=== PATIENT | female | born 1935 | race Caucasian/White ===

== ENCOUNTER 2020-05-22 13:41 | Inpatient (IN) ==
[2020-05-22] MEDS ORDERED: SODIUM CHLORIDE 0.9% 1,000 ML IV STA (14:02)
[2020-05-22] MEDS ORDERED: SODIUM CHLORIDE 0.9% 500 ML IV STA (14:07)
[2020-05-22 14:34] LABS: ABG Base Excess 3.5 MMOL/L (-2.5-2.5); ABG HCO3 27.4 MMOL/L (20-26); ABG PCO2 38.9 MM HG (35-48); ABG PH 7.465 (7.35-7.45); ABG PO2 101.1 MM HG (80-95); ABG TCO2 28.6 MMOL/L (23-27)
[2020-05-22 14:42] LABS: Basophils % 0.2 % (0.0-0.8); Eosinophils # 0.1 10*3/uL (0.0-0.87); Eosinophils % 0.5 % (0.00-10.9); Hematocrit 42.5 VOL% (35.7-47.0); Hemoglobin 13.3 GM/DL (12.0-16.0); Immature Granulocytes % 0.6 %; Immature Granulocytes Absolute 0.09 #; Lymphocytes # 3.3 10*3/uL (1.4-4.0); Lymphocytes % 21.8 % (21.3-54.2); Mean Corpuscular HGB Conc 31.3 GM/DL (32-36); Mean Corpuscular Volume 97.5 FL (87-102); Mean Platelet Volume 9.4 FL (9.6-12.0); Monocytes % 5.7 % (1.7-12.7); Neutrophils % 71.2 % (38.7-73.9); Platelet Count 170 T/CUMM (130-400); Red Blood Count 4.36 MC/CUMM (3.8-5.5); Red Cell Distribution Width 15.2 % (9.3-17.3)
[2020-05-22] MEDS ORDERED: AZITHROMYCIN INJ 500 MG in SODIUM CHLORIDE 0.9% 250 ML IV STA (14:54)
[2020-05-22] MEDS ORDERED: cefTRIAXone 1,000 MG in SODIUM CHLORIDE 0.9% 100 ML IV STA (14:54)
[2020-05-22 14:57] LABS: Apearance,Urine CLEAR (Clear); Bacteria,Urine Many /HPF (Few); Bilirubin,Urine Negative (Negative); Blood, Urine Small mg/dL (Negative); Glucose,Urine (UA) Negative (Negative); Hyaline Casts,Urine 4 /LPF (0-3); Ketones,Urine Negative (Negative); Mucus,Urine Occasional /LPF (Occasional); Nitrite,Urine Positive (Negative); Protein,Urine Negative; RBC,Urine 1 /HPF (0-4); Squamous Epithelial Cell,Urine Occasional /HPF (0-10); Urine Color Yellow (Yellow); Urine Specific Gravity 1.013 (1.001-1.035); Urine Urobilinogen < 2.0 EU/DL (0.2-1.0); WBC,Urine 17 /HPF (0-6)
[2020-05-22 15:08] LABS: Alanine Aminotransferase < 9 U/L (13-56); Albumin 2.2 G/DL (3.4-5.0); Alkaline Phosphatase 127 U/L (45-117); Aspartate Amino Transferase 24 U/L (0-37); Blood Urea Nitrogen 27 MG/DL (7-18); Calcium 7.4 MG/DL (8.5-10.1); Estimated Glom Filtration Rate 34 ML/MIN; Glucose 79 MG/DL (74-106); Osmolality,Calculated 299.1 MOS/KG (273-304); Total Protein 4.9 G/DL (6.4-8.3)
[2020-05-22 15:11] LABS: Ferritin 335.9 ng/ml (8-252)
[2020-05-22 15:44] LABS: Sedimentation Rate-Westergren 50 MM/HR (0-30)
[2020-05-22] MEDS ORDERED: ACETAMINOPHEN 325 MG TABLET PO PRN (16:00)
[2020-05-22] MEDS ORDERED: ONDANSETRON 4 MG/2 ML VIAL IV PRN (16:20)
[2020-05-22] MEDS ORDERED: SIMETHICONE CHEW 125 MG TABLET PO PRN (16:20)
[2020-05-22] MEDS ORDERED: DEXTROSE 50% 25 GM/50 ML VIAL IV PRN (16:20)
[2020-05-22] MEDS ORDERED: DOCUSATE SODIUM 100 MG CAPSULE PO PRN (16:20)
[2020-05-22] MEDS ORDERED: MORPHINE 4 MG/1 ML VIAL IV PRN (16:20)
[2020-05-22] MEDS ORDERED: guaiFENesin/DM ER 600-30 MG TABLET PO PRN (16:20)
[2020-05-22] MEDS ORDERED: hydrALAZINE 20 MG/1 ML VIAL IV PRN (16:20)
[2020-05-22] MEDS ORDERED: diphenhydrAMINE CAP 25 MG CAPSULE PO PRN (16:20)
[2020-05-22] MEDS ORDERED: LACTULOSE 20 GM/30 ML UDCUP PO PRN (16:20)
[2020-05-22] MEDS ORDERED: ZALEPLON 5 MG CAPSULE PO PRN (16:20)
[2020-05-22] MEDS ORDERED: BISACODYL 5 MG TABLET PO PRN (16:20)
[2020-05-22] MEDS ORDERED: traZODone 50 MG TABLET PO PRN (16:20)
[2020-05-22] MEDS ORDERED: GLUCAGON 1 MG VIAL IM PRN (16:20)
[2020-05-22] MEDS: FUROSEMIDE 40 MG TABLET PO SCH (17:39)
[2020-05-22] MEDS: SODIUM CHLORIDE 0.9% 1,000 ML IV SCH (18:02)
[2020-05-22] MEDS: ENOXAPARIN 40 MG/0.4 ML SYRINGE SUBCUT SCH (20:54)
[2020-05-22] MEDS: POTASSIUM CHLORIDE 20 MEQ TABLET PO SCH (20:55)
[2020-05-22] MEDS: METOPROLOL TARTRATE 50 MG TABLET PO SCH (20:55)
[2020-05-22] MEDS: GABAPENTIN 100 MG CAPSULE PO SCH (20:55)
[2020-05-22] MEDS: cilostazoL 100 MG TABLET PO SCH (20:55)
[2020-05-22] MEDS: MEMANTINE 10 MG TABLET PO SCH (20:56)
[2020-05-22] MEDS: CALCIUM (CARBONATE)/VITAMIN D 600 MG-400 UNIT TABLET PO SCH (20:56)
[2020-05-22] MEDS: DONEPEZIL 10 MG TABLET PO SCH (20:56)
[2020-05-23 05:58] LABS: Basophils % 0.2 % (0.0-0.8); Eosinophils # 0.2 10*3/uL (0.0-0.87); Eosinophils % 1.9 % (0.00-10.9); Hematocrit 34.6 VOL% (35.7-47.0); Immature Granulocytes % 0.7 %; Immature Granulocytes Absolute 0.08 #; Lymphocytes # 2.8 10*3/uL (1.4-4.0); Lymphocytes % 25.6 % (21.3-54.2); Mean Corpuscular HGB Conc 31.8 GM/DL (32-36); Mean Corpuscular Volume 97.2 FL (87-102); Mean Platelet Volume 9.3 FL (9.6-12.0); Monocytes % 6.7 % (1.7-12.7); Neutrophils % 64.9 % (38.7-73.9); Platelet Count 170 T/CUMM (130-400); Red Blood Count 3.56 MC/CUMM (3.8-5.5); Red Cell Distribution Width 14.9 % (9.3-17.3); White Blood Count 11.1 T/CUMM (4-12)
[2020-05-23 06:27] LABS: Risk Ratio 5.26; Thyroid Stimulating Hormone 2.02 uIU/ml (0.358-3.74)
[2020-05-23 07:00] LABS: Alanine Aminotransferase < 9 U/L (13-56); Albumin 2.2 G/DL (3.4-5.0); Alkaline Phosphatase 128 U/L (45-117); Aspartate Amino Transferase 23 U/L (0-37); Blood Urea Nitrogen 32 MG/DL (7-18); Calcium 8.8 MG/DL (8.5-10.1); Estimated Glom Filtration Rate 34 ML/MIN; Ferritin 438.1 ng/ml (8-252); Glucose 85 MG/DL (74-106); Osmolality,Calculated 295.6 MOS/KG (273-304); Total Protein 5.8 G/DL (6.4-8.3)
[2020-05-23 07:09] LABS: Sedimentation Rate-Westergren 64 MM/HR (0-30)
[2020-05-23] MEDS ORDERED: PANTOPRAZOLE 40 MG TABLET PO SCH (09:00)
[2020-05-23] MEDS ORDERED: allopurinoL 100 MG TABLET PO SCH (09:00)
[2020-05-23] MEDS: cefTRIAXone 1,000 MG in SYRINGE 1 EACH IV SCH (09:01)
[2020-05-23] MEDS: MULTIVITAMIN (OCUVITE) TABLET PO SCH (09:02)
[2020-05-23] MEDS: AZITHROMYCIN 250 MG TABLET PO SCH (09:02)
[2020-05-23] MEDS: CALCIUM (CARBONATE)/VITAMIN D 600 MG-400 UNIT TABLET PO SCH ×2 (09:02→20:03)
[2020-05-23] MEDS: POTASSIUM CHLORIDE 20 MEQ TABLET PO SCH ×2 (09:02→20:03)
[2020-05-23] MEDS: ARIPiprazole 5 MG TABLET PO SCH (09:02)
[2020-05-23] MEDS: ASPIRIN EC 325 MG TABLET PO SCH (09:02)
[2020-05-23] MEDS: cilostazoL 100 MG TABLET PO SCH ×2 (09:03→20:03)
[2020-05-23] MEDS: METOPROLOL TARTRATE 50 MG TABLET PO SCH ×2 (09:03→20:03)
[2020-05-23] MEDS: FUROSEMIDE 40 MG TABLET PO SCH ×2 (09:03→16:23)
[2020-05-23] MEDS: SERTRALINE 100 MG TABLET PO SCH (09:04)
[2020-05-23] MEDS: GABAPENTIN 100 MG CAPSULE PO SCH ×2 (09:04→20:03)
[2020-05-23] MEDS: allopurinoL 300 MG TABLET PO SCH (09:04)
[2020-05-23] MEDS: MEMANTINE 10 MG TABLET PO SCH ×2 (09:04→20:03)
[2020-05-23] MEDS: DESITIN 4OZ/NYSTATIN 15 GRAM MIXTURE PASTE TOP SCH ×2 (13:20→20:03)
[2020-05-23] MEDS: SODIUM CHLORIDE 0.9% 1,000 ML IV SCH (13:48)
[2020-05-23] MEDS ORDERED: AZITHROMYCIN INJ 500 MG in SODIUM CHLORIDE 0.9% 250 ML IV SCH (16:00)
[2020-05-23] MEDS: DONEPEZIL 10 MG TABLET PO SCH (20:03)
[2020-05-23] MEDS: ENOXAPARIN 40 MG/0.4 ML SYRINGE SUBCUT SCH (20:03)
[2020-05-24 05:03] LABS: Basophils % 0.2 % (0.0-0.8); Eosinophils # 0.3 10*3/uL (0.0-0.87); Eosinophils % 2.9 % (0.00-10.9); Hematocrit 36.9 VOL% (35.7-47.0); Hemoglobin 11.3 GM/DL (12.0-16.0); Immature Granulocytes % 0.8 %; Immature Granulocytes Absolute 0.07 #; Lymphocytes # 2.9 10*3/uL (1.4-4.0); Lymphocytes % 32.6 % (21.3-54.2); Mean Corpuscular HGB Conc 30.6 GM/DL (32-36); Mean Corpuscular Volume 98.1 FL (87-102); Mean Platelet Volume 9.8 FL (9.6-12.0); Monocytes % 6.5 % (1.7-12.7); Platelet Count 191 T/CUMM (130-400); Red Blood Count 3.76 MC/CUMM (3.8-5.5); Red Cell Distribution Width 14.9 % (9.3-17.3)
[2020-05-24 06:14] LABS: Sedimentation Rate-Westergren 77 MM/HR (0-30)
[2020-05-24 06:29] LABS: Alanine Aminotransferase < 9 U/L (13-56); Albumin 2.1 G/DL (3.4-5.0); Alkaline Phosphatase 124 U/L (45-117); Aspartate Amino Transferase 21 U/L (0-37); Blood Urea Nitrogen 30 MG/DL (7-18); Calcium 8.9 MG/DL (8.5-10.1); Estimated Glom Filtration Rate 36 ML/MIN; Ferritin 521.2 ng/ml (8-252); Glucose 76 MG/DL (74-106); Osmolality,Calculated 298.3 MOS/KG (273-304); Thyroid Stimulating Hormone 1.95 uIU/ml (0.358-3.74); Total Protein 5.7 G/DL (6.4-8.3)
[2020-05-24] MEDS: ASPIRIN EC 325 MG TABLET PO SCH (08:25)
[2020-05-24] MEDS: ARIPiprazole 5 MG TABLET PO SCH (08:25)
[2020-05-24] MEDS: allopurinoL 300 MG TABLET PO SCH (08:26)
[2020-05-24] MEDS: POTASSIUM CHLORIDE 20 MEQ TABLET PO SCH ×2 (08:26→20:46)
[2020-05-24] MEDS: cilostazoL 100 MG TABLET PO SCH ×2 (08:26→20:47)
[2020-05-24] MEDS: METOPROLOL TARTRATE 50 MG TABLET PO SCH ×2 (08:26→20:47)
[2020-05-24] MEDS: SERTRALINE 100 MG TABLET PO SCH (08:27)
[2020-05-24] MEDS: cefTRIAXone 1,000 MG in SYRINGE 1 EACH IV SCH (08:27)
[2020-05-24] MEDS: MEMANTINE 10 MG TABLET PO SCH ×2 (08:27→20:47)
[2020-05-24] MEDS: AZITHROMYCIN 250 MG TABLET PO SCH (08:27)
[2020-05-24] MEDS: FUROSEMIDE 40 MG TABLET PO SCH ×2 (08:27→16:39)
[2020-05-24] MEDS: GABAPENTIN 100 MG CAPSULE PO SCH ×2 (08:27→20:47)
[2020-05-24] MEDS: MULTIVITAMIN (OCUVITE) TABLET PO SCH (08:27)
[2020-05-24] MEDS: CALCIUM (CARBONATE)/VITAMIN D 600 MG-400 UNIT TABLET PO SCH ×2 (08:27→20:46)
[2020-05-24] MEDS: SODIUM CHLORIDE 0.9% 1,000 ML IV SCH (08:56)
[2020-05-24] MEDS: DESITIN 4OZ/NYSTATIN 15 GRAM MIXTURE PASTE TOP SCH ×2 (08:57→20:47)
[2020-05-24] MEDS: DONEPEZIL 10 MG TABLET PO SCH (20:46)
[2020-05-24] MEDS: ENOXAPARIN 40 MG/0.4 ML SYRINGE SUBCUT SCH (20:47)
[2020-05-25 06:10] LABS: Basophils % 0.4 % (0.0-0.8); Eosinophils # 0.3 10*3/uL (0.0-0.87); Eosinophils % 3.5 % (0.00-10.9); Hemoglobin 11.1 GM/DL (12.0-16.0); Immature Granulocytes % 0.8 %; Immature Granulocytes Absolute 0.06 #; Lymphocytes # 2.1 10*3/uL (1.4-4.0); Mean Corpuscular Volume 100.3 FL (87-102); Mean Platelet Volume 9.5 FL (9.6-12.0); Monocytes % 7.2 % (1.7-12.7); Neutrophils % 58.1 % (38.7-73.9); Platelet Count 187 T/CUMM (130-400); Red Blood Count 3.69 MC/CUMM (3.8-5.5); Red Cell Distribution Width 14.8 % (9.3-17.3); White Blood Count 7.1 T/CUMM (4-12)
[2020-05-25 07:02] LABS: Albumin 2.2 G/DL (3.4-5.0); Bilirubin,Total 0.4 MG/DL (0.2-1.0); Calcium 9.2 MG/DL (8.5-10.1); Ferritin 391.9 ng/ml (8-252); Osmolality,Calculated 302.9 MOS/KG (273-304); Total Protein 5.6 G/DL (6.4-8.3)
[2020-05-25 07:11] LABS: Thyroid Stimulating Hormone 2.24 uIU/ml (0.358-3.74)
[2020-05-25 08:04] LABS: Sedimentation Rate-Westergren 55 MM/HR (0-30)
[2020-05-25] MEDS: CALCIUM (CARBONATE)/VITAMIN D 600 MG-400 UNIT TABLET PO SCH ×2 (08:33→21:58)
[2020-05-25] MEDS: METOPROLOL TARTRATE 50 MG TABLET PO SCH ×2 (08:33→21:59)
[2020-05-25] MEDS: GABAPENTIN 100 MG CAPSULE PO SCH ×2 (08:34→21:59)
[2020-05-25] MEDS: ASPIRIN EC 325 MG TABLET PO SCH (08:34)
[2020-05-25] MEDS: POTASSIUM CHLORIDE 20 MEQ TABLET PO SCH ×2 (08:34→21:58)
[2020-05-25] MEDS: allopurinoL 300 MG TABLET PO SCH (08:34)
[2020-05-25] MEDS: MULTIVITAMIN (OCUVITE) TABLET PO SCH (08:34)
[2020-05-25] MEDS: SERTRALINE 100 MG TABLET PO SCH (08:34)
[2020-05-25] MEDS: MEMANTINE 10 MG TABLET PO SCH ×2 (08:34→21:59)
[2020-05-25] MEDS: ARIPiprazole 5 MG TABLET PO SCH (08:34)
[2020-05-25] MEDS: FUROSEMIDE 40 MG TABLET PO SCH ×2 (08:34→16:41)
[2020-05-25] MEDS: AZITHROMYCIN 250 MG TABLET PO SCH (08:35)
[2020-05-25] MEDS: DESITIN 4OZ/NYSTATIN 15 GRAM MIXTURE PASTE TOP SCH ×2 (08:39→21:59)
[2020-05-25] MEDS: cefTRIAXone 1,000 MG in SYRINGE 1 EACH IV SCH (08:40)
[2020-05-25] MEDS: cilostazoL 100 MG TABLET PO SCH ×2 (08:40→21:59)
[2020-05-25] MEDS: DEXTROSE 5% 1,000 ML IV SCH (11:20)
[2020-05-25] MEDS: DONEPEZIL 10 MG TABLET PO SCH (21:58)
[2020-05-25] MEDS: ENOXAPARIN 40 MG/0.4 ML SYRINGE SUBCUT SCH (21:59)
[2020-05-26 05:38] LABS: Basophils % 0.4 % (0.0-0.8); Eosinophils # 0.2 10*3/uL (0.0-0.87); Eosinophils % 3.1 % (0.00-10.9); Hematocrit 37.2 VOL% (35.7-47.0); Hemoglobin 11.5 GM/DL (12.0-16.0); Immature Granulocytes Absolute 0.08 #; Lymphocytes # 2.8 10*3/uL (1.4-4.0); Lymphocytes % 36.2 % (21.3-54.2); Mean Corpuscular HGB Conc 30.9 GM/DL (32-36); Mean Corpuscular Volume 98.4 FL (87-102); Mean Platelet Volume 9.8 FL (9.6-12.0); Monocytes % 6.2 % (1.7-12.7); Neutrophils % 53.1 % (38.7-73.9); Platelet Count 191 T/CUMM (130-400); Red Blood Count 3.78 MC/CUMM (3.8-5.5); Red Cell Distribution Width 14.9 % (9.3-17.3); White Blood Count 7.8 T/CUMM (4-12)
[2020-05-26 06:12] LABS: Alanine Aminotransferase < 6 U/L (13-56); Albumin 2.3 G/DL (3.4-5.0); Alkaline Phosphatase 133 U/L (45-117); Aspartate Amino Transferase 16 U/L (0-37); Blood Urea Nitrogen 22 MG/DL (7-18); Calcium 9.1 MG/DL (8.5-10.1); Estimated Glom Filtration Rate 40 ML/MIN; Ferritin 348.9 ng/ml (8-252); Glucose 78 MG/DL (74-106); Osmolality,Calculated 293.4 MOS/KG (273-304)
[2020-05-26 06:24] LABS: Thyroid Stimulating Hormone 1.94 uIU/ml (0.358-3.74)
[2020-05-26] MEDS: DEXTROSE 5% 1,000 ML IV SCH (07:03)
[2020-05-26 07:21] LABS: Sedimentation Rate-Westergren 80 MM/HR (0-30)
[2020-05-26] MEDS: ARIPiprazole 5 MG TABLET PO SCH (09:28)
[2020-05-26] MEDS: FUROSEMIDE 40 MG TABLET PO SCH ×2 (09:28→16:55)
[2020-05-26] MEDS: AZITHROMYCIN 250 MG TABLET PO SCH (09:29)
[2020-05-26] MEDS: MULTIVITAMIN (OCUVITE) TABLET PO SCH (09:29)
[2020-05-26] MEDS: cilostazoL 100 MG TABLET PO SCH ×2 (09:29→21:01)
[2020-05-26] MEDS: ASPIRIN EC 325 MG TABLET PO SCH (09:29)
[2020-05-26] MEDS: POTASSIUM CHLORIDE 20 MEQ TABLET PO SCH ×2 (09:29→21:00)
[2020-05-26] MEDS: CALCIUM (CARBONATE)/VITAMIN D 600 MG-400 UNIT TABLET PO SCH ×2 (09:30→21:01)
[2020-05-26] MEDS: SERTRALINE 100 MG TABLET PO SCH (09:30)
[2020-05-26] MEDS: GABAPENTIN 100 MG CAPSULE PO SCH ×2 (09:30→21:01)
[2020-05-26] MEDS: MEMANTINE 10 MG TABLET PO SCH ×2 (09:30→21:01)
[2020-05-26] MEDS: cefTRIAXone 1,000 MG in SYRINGE 1 EACH IV SCH (09:30)
[2020-05-26] MEDS: METOPROLOL TARTRATE 50 MG TABLET PO SCH ×2 (09:30→21:01)
[2020-05-26] MEDS: allopurinoL 300 MG TABLET PO SCH (09:31)
[2020-05-26] MEDS: DESITIN 4OZ/NYSTATIN 15 GRAM MIXTURE PASTE TOP SCH ×2 (09:31→21:01)
[2020-05-26] MEDS: ENOXAPARIN 40 MG/0.4 ML SYRINGE SUBCUT SCH (21:01)
[2020-05-26] MEDS: DONEPEZIL 10 MG TABLET PO SCH (21:01)
[2020-05-27 06:13] LABS: Basophils % 0.3 % (0.0-0.8); Eosinophils # 0.3 10*3/uL (0.0-0.87); Eosinophils % 4.1 % (0.00-10.9); Hemoglobin 10.6 GM/DL (12.0-16.0); Immature Granulocytes Absolute 0.14 #; Lymphocytes # 2.5 10*3/uL (1.4-4.0); Mean Corpuscular HGB Conc 31.2 GM/DL (32-36); Mean Corpuscular Volume 97.1 FL (87-102); Mean Platelet Volume 9.6 FL (9.6-12.0); Monocytes % 6.4 % (1.7-12.7); Neutrophils % 51.2 % (38.7-73.9); Platelet Count 205 T/CUMM (130-400); Red Cell Distribution Width 14.6 % (9.3-17.3); White Blood Count 6.9 T/CUMM (4-12)
[2020-05-27] MEDS: DEXTROSE 5% 1,000 ML IV SCH (06:34)
[2020-05-27 06:38] LABS: Atypical Lymphocytes Few; Band Neutrophils 1 % (0-10); Eosinophils 3 % (0-10); Lymphocytes 41 % (20-55); Polychromasia Slight; Segmented Neutrophils 47 % (50-85); Total Cells Counted 100
[2020-05-27 06:39] LABS: Microcytosis Slight; Platelet Estimate Normal
[2020-05-27 06:55] LABS: Alanine Aminotransferase < 9 U/L (13-56); Albumin 2.2 G/DL (3.4-5.0); Alkaline Phosphatase 128 U/L (45-117); Aspartate Amino Transferase 17 U/L (0-37); Bilirubin,Total < 0.39 MG/DL (0.2-1.0); Blood Urea Nitrogen 18 MG/DL (7-18); Estimated Glom Filtration Rate 43 ML/MIN; Ferritin 304.8 ng/ml (8-252); Glucose 75 MG/DL (74-106); Osmolality,Calculated 281.3 MOS/KG (273-304); Total Protein 5.6 G/DL (6.4-8.3)
[2020-05-27 06:59] LABS: Thyroid Stimulating Hormone 2.97 uIU/ml (0.358-3.74)
[2020-05-27 08:44] LABS: Sedimentation Rate-Westergren 77 MM/HR (0-30)
[2020-05-27] MEDS: MULTIVITAMIN (OCUVITE) TABLET PO SCH (08:53)
[2020-05-27] MEDS: POTASSIUM CHLORIDE 20 MEQ TABLET PO SCH ×2 (08:54→21:20)
[2020-05-27] MEDS: FUROSEMIDE 40 MG TABLET PO SCH ×2 (08:54→16:54)
[2020-05-27] MEDS: cilostazoL 100 MG TABLET PO SCH ×2 (08:54→21:20)
[2020-05-27] MEDS: ARIPiprazole 5 MG TABLET PO SCH (08:54)
[2020-05-27] MEDS: SERTRALINE 100 MG TABLET PO SCH (08:54)
[2020-05-27] MEDS: ASPIRIN EC 325 MG TABLET PO SCH (08:54)
[2020-05-27] MEDS: CALCIUM (CARBONATE)/VITAMIN D 600 MG-400 UNIT TABLET PO SCH ×2 (08:55→21:21)
[2020-05-27] MEDS: METOPROLOL TARTRATE 50 MG TABLET PO SCH ×2 (08:55→21:21)
[2020-05-27] MEDS: DESITIN 4OZ/NYSTATIN 15 GRAM MIXTURE PASTE TOP SCH ×2 (08:56→21:34)
[2020-05-27] MEDS: MEMANTINE 10 MG TABLET PO SCH ×2 (08:56→21:20)
[2020-05-27] MEDS: GABAPENTIN 100 MG CAPSULE PO SCH ×2 (08:56→21:20)
[2020-05-27] MEDS: allopurinoL 300 MG TABLET PO SCH (08:56)
[2020-05-27] MEDS: DONEPEZIL 10 MG TABLET PO SCH (21:21)
[2020-05-27] MEDS: ENOXAPARIN 40 MG/0.4 ML SYRINGE SUBCUT SCH (21:23)
[2020-05-28 06:41] LABS: Basophils % 0.4 % (0.0-0.8); Eosinophils # 0.3 10*3/uL (0.0-0.87); Eosinophils % 4.1 % (0.00-10.9); Hematocrit 32.3 VOL% (35.7-47.0); Hemoglobin 10.4 GM/DL (12.0-16.0); Immature Granulocytes % 2.4 %; Immature Granulocytes Absolute 0.18 #; Lymphocytes # 2.3 10*3/uL (1.4-4.0); Lymphocytes % 30.9 % (21.3-54.2); Mean Corpuscular HGB Conc 32.2 GM/DL (32-36); Mean Corpuscular Volume 93.9 FL (87-102); Mean Platelet Volume 9.5 FL (9.6-12.0); Monocytes % 5.4 % (1.7-12.7); Neutrophils % 56.8 % (38.7-73.9); Platelet Count 200 T/CUMM (130-400); Red Blood Count 3.44 MC/CUMM (3.8-5.5); Red Cell Distribution Width 14.5 % (9.3-17.3); White Blood Count 7.5 T/CUMM (4-12)
[2020-05-28 07:06] LABS: Albumin 2.1 G/DL (3.4-5.0); Bilirubin,Total 0.5 MG/DL (0.2-1.0); Calcium 9.2 MG/DL (8.5-10.1); Osmolality,Calculated 283.1 MOS/KG (273-304); Total Protein 5.4 G/DL (6.4-8.3)
[2020-05-28 08:25] VITALS: BP 108/62
[2020-05-28] MEDS: ASPIRIN EC 325 MG TABLET PO SCH (08:44)
[2020-05-28] MEDS: FUROSEMIDE 40 MG TABLET PO SCH (08:44)
[2020-05-28] MEDS: POTASSIUM CHLORIDE 20 MEQ TABLET PO SCH (08:45)
[2020-05-28] MEDS: MULTIVITAMIN (OCUVITE) TABLET PO SCH (08:45)
[2020-05-28] MEDS: GABAPENTIN 100 MG CAPSULE PO SCH (08:45)
[2020-05-28] MEDS: METOPROLOL TARTRATE 50 MG TABLET PO SCH (08:46)
[2020-05-28] MEDS: MEMANTINE 10 MG TABLET PO SCH (08:46)
[2020-05-28] MEDS: ARIPiprazole 5 MG TABLET PO SCH (08:46)
[2020-05-28] MEDS: CALCIUM (CARBONATE)/VITAMIN D 600 MG-400 UNIT TABLET PO SCH (08:46)
[2020-05-28] MEDS: SERTRALINE 100 MG TABLET PO SCH (08:46)
[2020-05-28] MEDS: cilostazoL 100 MG TABLET PO SCH (08:46)
[2020-05-28] MEDS: allopurinoL 300 MG TABLET PO SCH (08:47)
[2020-05-28] MEDS: DESITIN 4OZ/NYSTATIN 15 GRAM MIXTURE PASTE TOP SCH (08:47)
== END 2020-05-28 12:04 | DRG 871 ==
LOC: N.ED 13:41 → SUATTDRO 16:06 → N.EDINP 16:06 → N.2E 16:21 → N.4E 05-26 13:46
PROVIDERS: ADMIT Hospitalist; ATTEND Internal Medicine